=== PATIENT | male | born 1990 | race American Indian/Alaskan Native ===

== ENCOUNTER 2021-04-26 02:50 | Emergency (ER) | payer SELFPAY ==
[2021-04-26 03:46] LABS: Bilirubin,Urine NEG (Negative); Blood,Urine SM (Negative); Color,Urine Yellow (Yellow); Mucus,Urine FEW /HPF
[2021-04-26 03:57] LABS: Basophils # (Auto) 0.1 K/mm3 (0.0-0.1); Basophils % (Auto) 0.7 % (0.0-1.8); Eosinophils # (Auto) 0.2 K/mm3 (0.0-0.4); Hematocrit 40.8 % (35.5-45.6); Hemoglobin 13.4 gm/dl (11.8-15.2); Lymphocytes # (Auto) 2.2 K/mm3 (1.2-5.4); Lymphocytes % (Auto) 22.6 % (13.4-35.0); Mean Corpuscular HGB Conc 33 % (32-34); Mean Corpuscular Volume 92 fl (84-94); Monocytes # (Auto) 0.8 K/mm3 (0.0-0.8); Monocytes % (Auto) 8.3 % (0.0-7.3); Platelet Count 257 K/mm3 (140-440); Red Blood Count 4.42 M/mm3 (3.65-5.03)
[2021-04-26 04:19] LABS: Alanine Aminotransferase 11 units/L (7-56); Albumin 4.4 g/dL (3.9-5); BUN/Creatinine Ratio 14; Blood Urea Nitrogen 18 mg/dL (9-20); Calcium 9.5 mg/dL (8.4-10.2); Hemolysis Index 5
[2021-04-26] MEDS ORDERED: KETOROLAC 30 MG/1 ML INJ IV ONE (05:01)
[2021-04-26] MEDS ORDERED: SODIUM CHLORIDE 0.9% 1000 ML 1,000 ML IV ONE (05:01)
[2021-04-26] MEDS ORDERED: ONDANSETRON 4 MG/2 ML INJ IV ONE ×2 (05:01→06:32)
[2021-04-26] MEDS ORDERED: ONDANSETRON 4 MG/2 ML INJ ONE (05:03)
[2021-04-26] MEDS ORDERED: SODIUM CHLORIDE 0.9% 1000 ML 1,000 ML ONE (05:03)
[2021-04-26] MEDS ORDERED: KETOROLAC 30 MG/1 ML INJ ONE (05:03)
--- NOTE | 2021-04-26 05:57 | Cat Scan Report ---
CT abdomen pelvis wo con INDICATION / CLINICAL INFORMATION: RIGHT sided flank, back pain, suspected Kidney stone(s). TECHNIQUE: Axial CT imaging of abdomen and pelvis was obtained without contrast. Coronal and sagittal reformatte d imaging obtained and reviewed. All CT scans at this location are performed using CT dose reduction for ALARA by means of automated exposure control. COMPARISON: None available. FINDINGS: CT abdomen with contrast demonstrates grossly normal appearance of the liver, spleen, pancreas, and a drenal glands. There is a nonobstructing 2 mm calculus in the upper pole calyx of the left kidney. There is moderate right hydronephrosis present. Obstruction is caused by a calculus in the distal rig ht ureter measuring 6 mm right calculus is at the right UVJ. CT pelvis without contrast does not demonstrate any mass, free fluid, or focal inflammatory change. G I tract is grossly unremarkable. A normal appendix is present in the right lower quadrant. Visualized lung bases show scarring in the left lung base. No acute osseous abnormality. IMPRESSION: 1. Moderate right hydronephrosis caused by a 6 mm calculus in the distal right ureter at the UVJ. 2. Tiny nonobstructing calculus within the left kidney. Signer Name: Loyda Malagon MD Signed: 04/26/2021 5:53 AM Workstation Name: [id number]
[2021-04-26] MEDS ORDERED: MORPHINE 4 MG/1 ML INJ IV ONE (06:32)
[2021-04-26] MEDS ORDERED: cefTRIAXone/NS 1 GM/50 ML 1 GM/50 ML BAG IV ONE (06:32)
--- NOTE | 2021-04-26 06:36 | Emergency Department Report ---
ED Abdominal Pain HPI - General Chief Complaint: Abdominal Pain Stated Complaint: LOWER BACK PAIN Source: patient Mode of arrival: Ambulatory Limitations: No Limitations - History of Present Illness Initial Comments: Patient is a 31-year-old -[place] male with a history of renal stones who presents for bilateral flank pain radiating to bilateral suprapubic x3 days, patient states dysuria frequency and urgency. Is been no fevers or chills there is nausea without vomiting. Patient is voiding with some pain. Rated at 4/10. Patient is currently not taking antibiotics, has not seen urology in the past year he states. States symptoms are exacerbated by voiding. Symptoms are relieved by nothing tried. MD Complaint: flank pain Severity scale (0 -10): 5 - Related Data Previous Rx's Medication Instructions Recorded Last Taken Type Ketorolac [Toradol] 10 mg PO Q6H PRN #12 tablet 04/26/21 Unknown Rx Tamsulosin [Flomax] 0.4 mg PO QDAY #30 cap 04/26/21 Unknown Rx levoFLOXacin [Levaquin TAB] 500 mg PO QDAY 10 Days #10 tablet 04/26/21 Unknown Rx Allergies Allergy/AdvReac Type Severity Reaction Status Date / Time No Known Allergies Allergy Verified 04/26/21 05:06 ED Review of Systems ROS: Stated complaint: LOWER BACK PAIN Other details as noted in HPI Constitutional: no symptoms reported, malaise Eyes: denies: eye pain, eye discharge, vision change ENT: denies: ear pain, throat pain Respiratory: denies: cough, shortness of breath, wheezing Cardiovascular: denies: chest pain, palpitations Endocrine: no symptoms reported Gastrointestinal: abdominal pain, nausea. denies: vomiting Genitourinary: urgency, dysuria, frequency. denies: hematuria, discharge Musculoskeletal: back pain Skin: denies: rash, lesions Neurological: denies: headache, weakness, paresthesias Psychiatric: denies: anxiety, depression Hematological/Lymphatic: denies: easy bleeding, easy bruising ED Past Medical Hx - Past Medical History Previous Medical History?: No - Surgical History Past Surgical History?: No - Social History Smoking Status: Never Smoker Substance Use Type: Marijuana - Medications Home Medications: Home Medications Medication Instructions Recorded Confirmed Last Taken Type Ketorolac [Toradol] 10 mg PO Q6H PRN #12 tablet 04/26/21 Unknown Rx Tamsulosin [Flomax] 0.4 mg PO QDAY #30 cap 04/26/21 Unknown Rx levoFLOXacin [Levaquin TAB] 500 mg PO QDAY 10 Days #10 tablet 04/26/21 Unknown Rx ED Physical Exam - General Limitations: No Limitations General appearance: alert, in no apparent distress - Head Head exam: Present: atraumatic, normocephalic - Eye Eye exam: Present: normal appearance, EOMI Pupils: Present: normal accommodation - ENT ENT exam: Present: mucous membranes moist - Neck Neck exam: Present: normal inspection, full ROM. Absent: tenderness - Respiratory Respiratory exam: Present: normal lung sounds bilaterally. Absent: respiratory distress, wheezes, stridor - Cardiovascular Cardiovascular Exam: Present: regular rate, normal rhythm, normal heart sounds. Absent: systolic murmur, diastolic murmur, rubs, gallop - GI/Abdominal GI/Abdominal exam: Present: soft, normal bowel sounds. Absent: distended, tenderness, guarding, rebound, rigid, bruit, hernia - Rectal Rectal exam: Present: deferred - Extremities Exam Extremities exam: Present: normal inspection, full ROM. Absent: tenderness - Back Exam Back exam: Present: full ROM, CVA tenderness (R), CVA tenderness (L) - Neurological Exam Neurological exam: Present: alert, oriented X3, CN II-XII intact, normal gait - Psychiatric Psychiatric exam: Present: normal affect, normal mood - Skin Skin exam: Present: warm, dry, intact, normal color. Absent: rash ED Course Vital Signs 04/26/21 04/26/21 03:15 04:12 Temperature 99.2 F Pulse Rate 72 79 Respiratory 18 Rate Blood Pressure 112/70 O2 Sat by Pulse 99 99 Oximetry ED Medical Decision Making - Lab Data Result diagrams: 04/26/21 03:33 04/26/21 03:33 Labs 04/26/21 04/26/21 04/26/21 03:33 03:33 Unknown WBC 9.9 RBC 4.42 Hgb 13.4 Hct 40.8 MCV 92 MCH 30 MCHC 33 RDW 13.0 L Plt Count 257 Lymph % (Auto) 22.6 [place] % (Auto) 8.3 H Eos % (Auto) 2.0 Baso % (Auto) 0.7 Lymph # (Auto) 2.2 [place] # (Auto) 0.8 Eos # (Auto) 0.2 Baso # (Auto) 0.1 Seg Neutrophils % 66.4 Seg Neutrophils # 6.5 Sodium 140 Potassium 4.6 Chloride 101.8 Carbon Dioxide 29 Anion Gap 14 BUN 18 Creatinine 1.3 Estimated GFR > 60 BUN/Creatinine Ratio 14 Glucose 97 Calcium 9.5 Total Bilirubin 0.20 AST 16 ALT 11 Alkaline Phosphatase 65 Total Protein 7.0 Albumin 4.4 Albumin/Globulin Ratio 1.7 Urine Color Yellow Urine Turbidity Clear Urine pH 6.0 Ur Specific [place] 1.019 Urine Protein 30 mg/dl Urine Glucose (UA) Neg Urine Ketones Neg Urine Blood Sm Urine Nitrite Neg Urine Bilirubin Neg Urine Urobilinogen 2.0 Ur Leukocyte Esterase Neg Urine WBC (Auto) 2.0 Urine RBC (Auto) 28.0 Urine Mucus Few - Radiology Data Radiology results: report reviewed, image reviewed CT abdomen pelvis wo con INDICATION / CLINICAL INFORMATION: RIGHT sided flank, back pain, suspected Kidney stone(s). TECHNIQUE: Axial CT imaging of abdomen and pelvis was obtained without contrast. Coronal and sagittal reformatted imaging o btained and reviewed. All CT scans at this location are performed using CT dose reduction for ALARA by means of automated exposure control. COMPARISON: None available. FINDINGS: CT abdomen with contrast demonstrates grossly normal appearance of the liver, spleen, pancreas, and adrenal glands. There is a nonobstructing 2 mm calculus in the upper pole calyx of the left kidney. There is moderate right hydronephrosis present. Obstruction is caused by a calculus in the distal right ureter measuring 6 mm right calculus is at the right UVJ. CT pelvis without contrast does not demonstrate any mass, free fluid, or focal inflammatory change. GI tract is grossly unremarkable. A normal appendix is present in the right lower quadrant. Visualized lung bases show scarring in the left lung base. No acute osseous abnormality. IMPRESSION: 1. Moderate right hydronephrosis caused by a 6 mm calculus in the distal right ureter at the UVJ. 2. Tiny nonobstructing calculus within the left kidney. Signer Name: Loyda Malagon MD Signed: 04/26/2021 5:53 AM Workstation Name: [id number] Transcribed By: Dictated By: Loyda Malagon MD Electronically Authenticated By: Loyda Malagon MD Signed Date/Time: 04/26/21 0553 DD/ 0548 TD/TT: - Medical Decision Making CT abdomen pelvis without mild hydronephrosis left distal 6 mm ureteral stone plan antibiotics as ordered in ED pain is resolved at this time. Patient will be DC'd home with prescriptions and follow-up with urology patient verbalizes agreement and understanding with discharge plan. Patient DC'd to home in stable condition at this time. Critical care attestation.: If time is entered above; I have spent that time in minutes in the direct care of this critically ill patient, excluding procedure time. ED Disposition Clinical Impression: Kidney stones Disposition: DC-01 TO HOME OR SELFCARE Is pt being admited?: No Does the pt Need Aspirin: No Condition: Stable Instructions: Low-Purine Eating Plan, Kidney Stones, [id number], Dietary Guidelines to Help Prevent Kidney Stones Additional Instructions: Take medications as prescribed, hydrate as directed. follow up with Urology Dr Herrera in 2-3 days, return to emergency if symptoms worsen Prescriptions: Tamsulosin [Flomax] 0.4 mg PO QDAY #30 cap levoFLOXacin [Levaquin TAB] 500 mg PO QDAY 10 Days #10 tablet Ketorolac [Toradol] 10 mg PO Q6H PRN #12 tablet PRN Reason: Pain Referrals: CHAS HERRERA MD [Staff Physician] - 3-5 Days Forms: Work/School Release Form(ED) Time of Disposition: 06:39
[2021-04-26 07:44] VITALS: BP 122/70
== END 2021-04-26 07:44 | disposition home or self-care (01) ==
LOC: ED 02:50
DX: N20.0 Calculus of kidney (principal); F12.90 Cannabis use, unspecified, uncomplicated; Z79.899 Other long term (current) drug therapy
CPT/HCPCS: 36415; 74176; 80053; 81001; 85025; 96361; 96365; 96375; 99284; J0696; J1885; J2405; J7030